=== PATIENT | male | born 1995 | race Caucasian/White ===

== ENCOUNTER 2024-07-09 10:16 | Emergency (ER) | payer MEDICARE, OTHER, SELFPAY ==
[2024-07-09 10:41] VITALS: BP 112/66; PULSE 66; RESP 18; TEMP 36.6; O2SAT 98
--- NOTE | 2024-07-09 10:50 | ED.EAR ---
HPI - Ear Problem General Chief complaint: Ear Stated complaint: rt ear clogging and drainage Time Seen by Provider: 07/09/24 10:50 Source: patient, RN notes reviewed and old records reviewed Mode of arrival: ambulatory Limitations: no limitations History of Present Illness HPI Narrative: 29-year-old female to [facility] for complaint of decreased hearing in right ear for 3 days. Patient history of autism; patient's mother accompanies him to exam room. Mother reports that they recently returned from vacation where patient [place], Concerned ear infection. Patient has been using Q-tips in right ear. Patient denies pain, fever, cough, sore throat, allergies, pertinent medical history. Patient able to tolerate fluids by mouth. Patient resting comfortably in exam room in no acute distress. Respirations even and nonlabored. Related Data Allergies Allergy/AdvReac Type Severity Reaction Status Date / Time No Known Allergies Allergy Verified 07/09/24 10:44 Review of Systems Review of Systems: All systems reviewed & are unremarkable except as noted in HPI and below Constitutional: Constitutional: Reports no additional constitutional complaints Eyes: Eyes: Reports no additional eye complaints ENT: Reports as per HPI, Denies otalgia and Reports hearing loss ( Right ear) Cardiovascular: Cardiovascular: Reports no additional cardiovascular complaints, Denies chest pain and Denies dyspnea Respiratory: Respiratory: Reports no additional respiratory complaints, Denies cough and Denies dyspnea Musculoskeletal: Musculoskeletal: Reports no additional musculoskeletal complaints Neurologic: Reports system reviewed and no additional complaints, except as documented Psychiatric: Psychiatric: Reports no additional psychiatric complaints PMFSH Comments At the time of my signature, I reviewed and agree with the nursing past medical, surgical, social, and family history. There is no relevant family history pertinent to the patient complaint. Exam Const: General: cooperative, healthy appearing, comfortable, no acute distress, alert and well nourished Nutritional Appearance: well nourished Orientation/consciousness: patient oriented x3 Limitations: no limitations HENMT: Head: normal to inspection Ears: Abnormal EAC present cerumen impaction on the right Face/Nose/Sinus: Normal external nose present, Normal nares present, normal facial exam, No erythema and No edema Face and sinus: normal facial exam, no erythema and no edema Mouth: Yes Normal oral and palatal mucosa present Eyes: General: appearance normal, both eyes and all related structures Neck: Neck: normal visual inspection, full ROM and no meningeal signs Chest: Chest palpation & inspection: normal inspection of the chest Resp: Effort & Inspection: normal respiratory effort and able to speak in complete sentences Cardio: Jugular venous distension: no JVD Rate: regular rate Rhythm: regular rhythm Back/Spine/Pelvis: Cervical Spine: cervical ROM normal Skin: General skin exam: normal color, no rashes or lesions noted and turgor normal Neuro: General: patient oriented x3, gait normal, moves all extremities and no meningeal signs Speech: normal speech Gait exam (Neuro): Normal gait present Extrem: General: normal to inspection, full ROM and capillary refill normal Psych: Appearance: grossly normal and well kempt Course Course Emergency Course: Some parts of this dictation were generated by voice recognition software and may contain typographical and/or grammatical inaccuracies. Level of Care: Express Care Visit Vital Signs Vital signs: Vital Signs Temperature 36.6 C 07/09/24 10:41 Pulse Rate 66 07/09/24 10:41 Respiratory Rate 18 07/09/24 10:41 Blood Pressure 112/66 07/09/24 10:41 Pulse Oximetry 98 07/09/24 10:41 Oxygen Delivery Room Air 07/09/24 10:41 Temperature 36.6 C 07/09/24 10:41 Pulse Rate 66
== END 2024-07-09 11:11 | disposition home or self-care (01) ==
PROVIDERS: Emergency Provider Nurse Practitioner Family
DX: H61.21 Impacted cerumen, right ear (principal); F84.0 Autistic disorder; Z86.16 Personal history of COVID-19
CPT/HCPCS: 69210; 99213; G0463